=== PATIENT | male | born 1965 | race Caucasian/White ===

== ENCOUNTER 2020-07-06 16:27 | Observation (INO) ==
[2020-07-06] MEDS ORDERED: 0.9 % Sodium Chloride 1,000 ML IVC ONE (16:56)
[2020-07-06] MEDS ORDERED: Ondansetron 4 MG/2 ML VIAL IVP ONE (16:56)
[2020-07-06] MEDS ORDERED: Isovue-370 500 ML BOTTLE IVP ONE ×2 (17:15→18:22)
[2020-07-06] MEDS: Morphine Sulfate 2 MG/ML SYRINGE IVP ONE ×2 (17:33→17:46)
[2020-07-06 17:48] LABS: Basophils # 0.1 K/mcL (0.0-0.2); Basophils % 0.4 %; Eosinophils # 0.1 K/mcL (0.0-0.6); Eosinophils % 0.3 %; Hematocrit 47.9 % (37.5-50.1); Hemoglobin 15.8 g/dL (12.9-16.9); Immature Granulocytes % 0.4 % (0-4); Lymphocytes # 1.3 K/mcL (0.6-4.6); Lymphocytes % 8.4 %; Mean Corpuscular Hemoglobin 28.7 pg (28.0-33.3); Mean Corpuscular Volume 87.1 fL (83.0-100.0); Mean Platelet Volume 9.3 fL (9.4-12.4); Monocytes # 1.3 K/mcL (0.0-1.3); Monocytes % 7.9 %; Neutrophils # 13.2 K/mcL (1.6-8.9); Platelet Count 335 K/mcL (140-400); Red Cell Distribution Width 12.3 % (11.5-14.5); Segmented Neutrophils % 82.6 %; White Blood Count 15.9 K/mcL (4.3-11.1)
[2020-07-06 18:00] LABS: Alanine Aminotransferase 151 Units/L (7-52); Albumin 4.5 g/dL (3.5-5.7); Albumin/Globulin Ratio 1.6 (1.1-2.2); Alkaline Phosphatase 94 Units/L (34-104); Aspartate Amino Transferase 340 Units/L (13-39); BUN/Creatinine Ratio 17 (6-26); Bilirubin,Total 1.1 mg/dL (0.3-1.0); Blood Urea Nitrogen 14 mg/dL (6-20); Calcium 9.9 mg/dL (8.6-10.3); Carbon Dioxide 30 mEq/L (23-29); Chloride 101 mEq/L (98-107); Globulin 2.8 g/dL (2.4-3.5); Glucose 118 mg/dL (70-105); Lipase 19 Units/L (11-82); Osmolality,Calculated 290 (280-300); Potassium 3.7 mEq/L (3.5-5.1); Sodium 139 mEq/L (136-145); Total Protein 7.3 g/dL (6.4-8.9); Troponin I < 0.03 ng/mL (< 0.04); eGFR For African Americans > 60 (> 60); eGFR For Non-African Americans > 60 (> 60)
[2020-07-06] MEDS ORDERED: *HR* HYDROmorphone (PF) 1 MG/ML SYRINGE IVP ONE ×2 (18:18→20:15)
[2020-07-06] MEDS ORDERED: Piperacillin/Tazobactam 3.375 GM in 0.9 % Sodium Chloride Mini Bag 100 ML IVPB ONE (19:16)
[2020-07-06] MEDS ORDERED: *HR* Rocuronium Bromide 50 MG/5 ML VIAL ONE (20:28)
[2020-07-06] MEDS ORDERED: *HR* FentaNYL (PF) 100 MCG/2 ML VIAL ONE (20:28)
[2020-07-06] MEDS ORDERED: *HR* Propofol 200 MG/20 ML VIAL IVP ONE (20:28)
[2020-07-06] MEDS ORDERED: Lidocaine -MPF 2% 2 ML VIAL ONE (20:28)
[2020-07-06] MEDS ORDERED: *HR* Succinylcholine 200 MG/10 ML VIAL IVP ONE (20:56)
[2020-07-06] MEDS ORDERED: Acetaminophen IV 1,000 MG/100 ML BAG IVPB ONE (21:59)
[2020-07-06] MEDS ORDERED: Albumin Human 5% 0 GM/0 ML IV.SOLN ONE (22:00)
[2020-07-06] MEDS ORDERED: CefOXitin 1,000 MG VIAL ONE (22:04)
[2020-07-06] MEDS ORDERED: *HR* HYDROMORPHONE 2 MG/ML VIAL ONE (22:31)
[2020-07-06] MEDS ORDERED: Ondansetron 4 MG/2 ML VIAL ONE (22:31)
[2020-07-06] MEDS ORDERED: Ketorolac 30 MG/ML VIAL ONE (23:05)
[2020-07-06] MEDS ORDERED: Sugammadex Sodium 200 MG/2 ML VIAL IV ONE (23:16)
[2020-07-06] MEDS ORDERED: *HR* OxyCODONE Immed Rel 5 MG TABLET PO PRN (23:43)
[2020-07-06] MEDS ORDERED: *HR* HYDROmorphone (PF) 1 MG/ML SYRINGE IVP PRN (23:43)
[2020-07-06] MEDS ORDERED: *HR* Labetalol 20 MG/4 ML SYRINGE IVP PRN (23:43)
[2020-07-06] MEDS ORDERED: Ondansetron 4 MG/2 ML VIAL IVP PRN (23:43)
[2020-07-07] MEDS ORDERED: *HR* HYDROmorphone (PF) 1 MG/ML SYRINGE IVP PRN (01:10)
[2020-07-07] MEDS ORDERED: Morphine Sulfate 2 MG/ML SYRINGE IVP PRN (01:10)
[2020-07-07] MEDS ORDERED: Isovue-370 500 ML BOTTLE IVP ONE (01:10)
[2020-07-07] MEDS ORDERED: Ondansetron 4 MG/2 ML VIAL IVP PRN (01:10)
[2020-07-07] MEDS ORDERED: *HR* Metoprolol 5 MG/5 ML VIAL IVP PRN (01:10)
[2020-07-07] MEDS ORDERED: *HR* Labetalol 20 MG/4 ML SYRINGE IVP PRN (01:10)
[2020-07-07] MEDS ORDERED: *HR* OxyCODONE Immed Rel 5 MG TABLET PO PRN (01:10)
[2020-07-07] MEDS ORDERED: 0.9 % Sodium Chloride 1,000 ML IVC SCH (01:10)
[2020-07-07] MEDS: Piperacillin/Tazobactam 3.375 GM in 0.9 % Sodium Chloride Mini Bag 100 ML IVPB SCH ×2 (04:35→11:52)
[2020-07-07] MEDS ORDERED: Acetaminophen IV 1,000 MG/100 ML BAG IVPB ONE (06:57)
[2020-07-07] MEDS ORDERED: Ibuprofen 800 MG TABLET PO STA (06:59)
[2020-07-07] MEDS ORDERED: Pantoprazole 40 MG VIAL IVP SCH (09:00)
[2020-07-07] MEDS: *HR* OxyCODONE Immed Rel 5 MG TABLET PO PRN ×2 (09:49→16:54)
[2020-07-07] MEDS ORDERED: Ibuprofen 800 MG TABLET PO SCH (16:00)
== END 2020-07-07 19:19 | disposition left against medical advice (07) ==
LOC: 3ANU 16:27 → EMEROOARM 16:27 → 3ANU 21:15 → EMEROOARM 21:17
PROVIDERS: ADMIT Internal Medicine; ATTEND Internal Medicine